=== PATIENT | male | born 1970 | race Caucasian/White ===

== ENCOUNTER → 2016-11-23 | Day surgery (SDC) | payer OTHER ==
[~2016-11-23] MED LIST: APIX5TAB PO; LIDOCAINE HCL 1% PF 30 ML VIAL ONE; SODIUM BICARBONATE 8.4% INJ 50 ML ONE
[2016-11-23 13:30] VITALS: BP 145/90; PULSE 16; RESP 16; TEMP 98.2; O2SAT 96
[2016-11-23 14:10] VITALS: BP 144/90; PULSE 60; RESP 16; TEMP 98; O2SAT 100
--- NOTE | 2016-11-23 15:16 | RADRPT ---
EXAM DATE/TIME: 11/23/2016 13:36 [facility] COMPARISON: No previous studies available for comparison. INDICATIONS : Right popliteal cyst. MEDICAL HISTORY : Right popliteal cyst. SURGICAL HISTORY : Left finger tendon repair. ENCOUNTER: Initial ACUITY: 1 month PAIN SCORE: 6/10 LOCATION: Right knee FLUID: Total volume of 35 cc of clear, yellow fluid was removed. Fluid was discarded. Post procedure scanning reveals no hematoma or other complication. TECHNIQUE: 1. Ultrasound guidance for needle aspiration. 2. Aspiration. The risks, benefits, and alternatives to ultrasound guided aspiration were explained to the patient i n detail including the risk of bleeding and infection. Written and verbal informed consent was obtai tony. With the patient on the ultrasound table, ultrasound imaging was used to select the most appropriate approach for aspiration. Overlying skin was prepped and draped in the usual sterile fashion and with local anesthetic a dermatotomy was made with an 11 blade scalpel. A catheter was introduced into th e cavity and fluid was collected. CONCLUSION: Uncomplicated ultrasound guided aspiration of the right popliteal cyst. Wayne Matt MD on November 23, 2016 at 15:14 Board Certified Radiologist. This report was verified electronically.
== END | disposition home or self-care (01) ==
LOC: HRAD 12:42
PROVIDERS: ATTEND Orthopaedic Surgery Sports Medicine
DX: M71.21 Synovial cyst of popliteal space [Baker], right knee (principal)
CPT/HCPCS: 20612; 76942

== ENCOUNTER 2017-02-07 07:31 | Emergency (ER) | payer OTHER ==
[~2017-02-07] VITALS: Ht 177.8 cm; Wt 82.0 kg
[~2017-02-07 07:31] MED LIST changes: -LIDOCAINE HCL 1% PF 30 ML VIAL ONE; -SODIUM BICARBONATE 8.4% INJ 50 ML ONE
[2017-02-07 07:35] VITALS: BP 136/96; PULSE 90; RESP 17; TEMP 98.3; O2SAT 99
[2017-02-07] MEDS ORDERED: BACL10TA PO (07:48)
--- NOTE | 2017-02-07 07:57 | PD ---
HPI Chief Complaint: Edema Time Seen by Provider: 07:40 Travel History International Travel<30 days: No Contact w/Intl Traveler<30days: No Traveled to known affect area: No History of Present Illness HPI The patient is a 46-year-old male who presents emergency department for left leg pain of 3 days' duration. The patient has a history of DVT in the left lower extremity one year ago and was placed on Eliquis for 6 months. The patient was taken off of the medication after 6 months, and has been doing well until last month when he developed right knee pain. The patient was then seen by his orthopedist had an ultrasound and an outpatient MRI which were unremarkable, had a Davies cyst drained from the right knee, but continued to have pain with difficulty bearing weight on the right leg. The patient then developed bilateral hip pain and weakness which shoulder pain and weakness, was evaluated for polymyalgia rheumatica. The patient states that workup was negative and is currently undergoing workup for possible rheumatoid arthritis and possibly lupus. The patient has a nerve/muscle conduction test scheduled for this coming Wednesday on an outpatient basis. The patient does complain of left leg pain over the last 3 days of sore over the posterior aspect the left calf and the medial left thigh with some edema, pain is similar to his previous DVT one year ago. He does note subjective fevers. The patient's primary physician is Dr. Gutierrez. [facility] Past Medical History Diminished Hearing: No Tetanus Vaccination: Unknown Social History Alcohol Use: Yes (TWICE WEEKLY) Tobacco Use: No Substance Use: No Allergies-Medications (Allergen,Severity, Reaction): Coded Allergies: No Known Allergies (Unverified , 02/07/17) Reported Meds & Prescriptions Reported Meds & Active Scripts Active Eliquis (Apixaban) 5 Mg Tab 10 Mg PO BID Eliquis (Apixaban) 5 Mg Tab 5 Mg PO BID Reported Baclofen 10 Mg Tab 10 Mg PO BID PRN Review of Systems Except as stated in HPI: all other systems reviewed are Neg General / Constitutional: Positive: Fever (subjective) Musculoskeletal: Positive: Arthralgias, Weakness, Edema, Pain Skin: No Rash Neurologic: No: Paresthesia, Sensory Disturbance Physical Exam Narrative GENERAL: Awake, alert, pleasant 46-year-old male who appears his stated age and is in no acute respiratory distress. SKIN: Focused skin assessment warm/dry. HEAD: Atraumatic. Normocephalic. EYES: Pupils equal and round. No scleral icterus. No injection or drainage. ENT: No nasal bleeding or discharge. Mucous membranes pink and moist. NECK: Trachea midline. No JVD. MUSCULOSKELETAL: Mild tenderness over the left calf and medial aspect left thigh , no erythema noted. Positive distal pulses. NEUROLOGICAL: Awake and alert. No obvious cranial nerve deficits. Motor grossly within normal limits. Normal speech. PSYCHIATRIC: Appropriate mood and affect; insight and judgment normal. Data Data Last Documented VS Vital Signs Date Time Temp Pulse Resp B/P Pulse Ox O2 Delivery O2 Flow Rate FiO2 02/07/17 08:51 69 16 138/77 94 Room Air 02/07/17 07:35 98.3 Orders Complete Blood Count With Diff (02/07/17 07:47) Basic Metabolic Panel (Bmp) (02/07/17 07:47) Creatine Kinase (Cpk) (02/07/17 07:47) Act Partial Throm Time (Ptt) (02/07/17 07:47) Prothrombin Time / Inr (Pt) (02/07/17 07:47) Us Leg Venous Doppler (02/07/17 ) Morphine Inj (Morphine Inj) (02/07/17 08:00) Ketorolac Inj (Toradol Inj) (02/07/17 08:00) Ondansetron Inj (Zofran Inj) (02/07/17 08:00) Sodium Chlor 0.9% 1000 Ml Inj (Ns 1000 M (02/07/17 08:00) Morphine Inj (Morphine Inj) (02/07/17 08:00) Apixaban (Eliquis) (02/07/17 09:30) Labs Laboratory Tests Test 02/07/17 08:00 White Blood Count 8.3 TH/MM3 Red Blood Count 4.69 MIL/MM3 Hemoglobin 14.6 GM/DL Hematocrit 43.2 % Mean Corpuscular Volume 92.1 FL Mean Corpuscular Hemoglobin 31.0 PG Mean Corpuscular Hemoglobin 33.7 % Concent Red Cell Distribution Width 13.2 % Platelet Count 156 TH/MM3 Mean Platelet Volume 7.7 FL Neutrophils (%) (Auto) 73.3 % Lymphocytes (%) (Auto) 13.2 % Monocytes (%) (Auto) 11.9 % Eosinophils (%) (Auto) 1.1 % Basophils (%) (Auto) 0.5 % Neutrophils # (Auto) 6.1 TH/MM3 Lymphocytes # (Auto) 1.1 TH/MM3 Monocytes # (Auto) 1.0 TH/MM3 Eosinophils # (Auto) 0.1 TH/MM3 Basophils # (Auto) 0.0 TH/MM3 CBC Comment DIFF FINAL Differential Comment Prothrombin Time 10.5 SEC Prothromb Time International 1.0 RATIO Ratio Activated Partial 26.9 SEC Thromboplast Time Sodium Level 139 MEQ/L Potassium Level 4.1 MEQ/L Chloride Level 104 MEQ/L Carbon Dioxide Level 27.9 MEQ/L Anion Gap 7 MEQ/L Blood Urea Nitrogen 13 MG/DL Creatinine 1.00 MG/DL Estimat Glomerular Filtration 80 ML/MIN Rate Random Glucose 111 MG/DL Calcium Level 9.1 MG/DL Total Creatine Kinase 47 U/L MDM Medical Decision Making Medical Screen Exam Complete: Yes Emergency Medical Condition: Yes Medical Record Reviewed: Yes Interpretation(s) Ultrasound reveals positive DVT in the mid thigh distally involving the superficial from oral vein and popliteal vein. Laboratory Tests Test 02/07/17 08:00 White Blood Count 8.3 TH/MM3 Red Blood Count 4.69 MIL/MM3 Hemoglobin 14.6 GM/DL Hematocrit 43.2 % Mean Corpuscular Volume 92.1 FL Mean Corpuscular Hemoglobin 31.0 PG Mean Corpuscular Hemoglobin 33.7 % Concent Red Cell Distribution Width 13.2 % Platelet Count 156 TH/MM3 Mean Platelet Volume 7.7 FL Neutrophils (%) (Auto) 73.3 % Lymphocytes (%) (Auto) 13.2 % Monocytes (%) (Auto) 11.9 % Eosinophils (%) (Auto) 1.1 % Basophils (%) (Auto) 0.5 % Neutrophils # (Auto) 6.1 TH/MM3 Lymphocytes # (Auto) 1.1 TH/MM3 Monocytes # (Auto) 1.0 TH/MM3 Eosinophils # (Auto) 0.1 TH/MM3 Basophils # (Auto) 0.0 TH/MM3 CBC Comment DIFF FINAL Differential Comment Prothrombin Time 10.5 SEC Prothromb Time International 1.0 RATIO Ratio Activated Partial 26.9 SEC Thromboplast Time Sodium Level 139 MEQ/L Potassium Level 4.1 MEQ/L Chloride Level 104 MEQ/L Carbon Dioxide Level 27.9 MEQ/L Anion Gap 7 MEQ/L Blood Urea Nitrogen 13 MG/DL Creatinine 1.00 MG/DL Estimat Glomerular Filtration 80 ML/MIN Rate Random Glucose 111 MG/DL Calcium Level 9.1 MG/DL Total Creatine Kinase 47 U/L Differential Diagnosis Differential diagnosis includes thrombophlebitis, DVT, Davies's cyst, polymyalgia rheumatica, myositis, rheumatoid arthritis, autoimmune disorder. Narrative Course IV was established, labs are drawn and sent, and the patient was placed on cardiac telemetry monitoring and continuous pulse oximetry monitoring. The patient was administered morphine, Toradol, Zofran, and IV fluids. Ultrasound of the left lower extremity was ordered to evaluate for possible DVT. Labs are unremarkable. CPK is 47, therefore, highly doubt myositis. Ultrasound reveals DVT, therefore, patient was dosed with Eliquis 10 mg twice a day for 7 days and then 5 mg twice a day for the next 30 days. Patient was administered his first dose in the emergency department. He will be provided a copy of his lab results and ultrasound results at discharge. Patient may need anticoagulation for life as this is his second occurrence of a DVT. He is currently undergoing workup for possible autoimmune causes it may need workup in regards to hypercoagulable states. Diagnosis Primary Impression: DVT (deep venous thrombosis) Qualified Code: I82.412 - Acute deep vein thrombosis (DVT) of femoral vein of left lower extremity Patient Instructions: General Instructions Additional Instructions: Please provide a patient a copy of his lab results and ultrasound results at discharge. Eliquis as directed. Follow-up with your primary physician. Return for increasing symptoms, chest pain, or shortness of breath. Med/Other Pt SpecificInfo: Prescription(s) given Scripts Apixaban (Eliquis)5 Mg Tab10 Mg PO BID #14 TAB Ref 0 Prov:Hollis Garrett MD 02/07/17 Apixaban (Eliquis)5 Mg Tab5 Mg PO BID #60 TAB Ref 0 Prov:Hollis Garrett MD 02/07/17 Disposition: 01 DISCHARGE HOME Condition: Stable Hollis Garrett MD Feb 07, 2017 07:57
[2017-02-07] MEDS ORDERED: SODIUM CHLOR 0.9% 1000 ML INJ 1,000 ML IV ONE (08:00)
[2017-02-07] MEDS ORDERED: MORPHINE SULFATE 8 MG/ML INJ IV PUSH ONE (08:00)
[2017-02-07] MEDS ORDERED: KETOROLAC TROMETHAMINE 30 MG/ML (IVP) VIAL IV PUSH ONE (08:00)
[2017-02-07] MEDS ORDERED: ONDANSETRON HCL 4 MG/2 ML VIAL IV PUSH ONE (08:00)
[2017-02-07] MEDS ORDERED: MORPHINE SULFATE 4 MG/ML INJ IV PUSH ONE (08:00)
[2017-02-07 08:06] VITALS: BP 143/96; PULSE 76; RESP 16; O2SAT 95
[2017-02-07 08:18] LABS: AUTOMATED NEUTROPHIL # 6.1 TH/MM3 (1.8-7.7); BASOPHIL % 0.5 % (0.0-2.0); EOSINOPHIL # 0.1 TH/MM3 (0-0.4); EOSINOPHIL % 1.1 % (0.0-4.0); HEMATOCRIT 43.2 % (39.0-51.0); HEMO FLAGS DIFF FINAL; LYMPH % 13.2 % (9.0-44.0); LYMPHOCYTE # 1.1 TH/MM3 (1.0-4.8); MEAN CELL VOLUME 92.1 FL (80.0-100.0); MEAN CORPUSCULAR HGB CONC 33.7 % (32.0-36.0); MONO % 11.9 % (0.0-8.0); NEUT % 73.3 % (16.0-70.0); PLATELET COUNT 156 TH/MM3 (150-450); RED BLOOD COUNT 4.69 MIL/MM3 (4.50-5.90); RED CELL DISTRIBUTION WIDTH 13.2 % (11.6-17.2); WHITE BLOOD COUNT 8.3 TH/MM3 (4.0-11.0)
[2017-02-07 08:19] LABS: POTASSIUM 4.1 MEQ/L (3.5-5.1)
[2017-02-07 08:22] LABS: BICARBONATE 27.9 MEQ/L (21.0-32.0)
[2017-02-07 08:23] LABS: APTT (PATIENT) 26.9 SEC (24.3-30.1); PROTHROMBIN TIME - PATIENT 10.5 SEC (9.8-11.6)
[2017-02-07 08:51] VITALS: BP 138/77; PULSE 69; RESP 16; O2SAT 94
[2017-02-07] MEDS ORDERED: APIX5TAB PO (09:24)
--- NOTE | 2017-02-07 09:29 | RADRPT ---
EXAM DATE/TIME: 02/07/2017 09:01 [facility] COMPARISON: No previous studies available for comparison. INDICATIONS : Left leg pain and swelling. MEDICAL HISTORY : Deep venous thrombosis. SURGICAL HISTORY : Left finger surgery. ENCOUNTER: Subsequent ACUITY: 3 days PAIN SCORE: 6/10 LOCATION: Left leg. TECHNIQUE: Venous ultrasound of the leg was performed from the inguinal ligament to the proximal calf. Real-yimi e, color Doppler and spectral tracing, compression and augmentation techniques were used. FINDINGS: There is occlusive thrombus present from the lower thigh to the lower calf. There is thrombus in the superficial femoral vein and popliteal vein. The vein is noncompressible. Deep profunda, common femoral vein and greater saphenous vein are still patent. Elongated Davies's cyst. CONCLUSION: Positive DVT in the mid thigh distally involving the superficial femoral vein and popliteal vein. Dewayne Ward MD on February 07, 2017 at 9:25 Board Certified Radiologist. This report was verified electronically.
[2017-02-07] MEDS ORDERED: APIXABAN 5 MG TABLET PO ONE (09:30)
== END 2017-02-07 09:51 | disposition home or self-care (01) ==
LOC: PHED 07:31
DX: I82.412 Acute embolism and thrombosis of left femoral vein (principal); R50.9 Fever, unspecified; Z87.39 Personal history of other diseases of the musculoskeletal system and connective tissue; Z86.718 Personal history of other venous thrombosis and embolism
CPT/HCPCS: 80048; 82550; 85025; 85610; 85730; 93971; 96361; 96374; 96375; 99285; J1885; J2270; J2405; J7030